=== PATIENT | male | born 1960 | race Caucasian/White ===

== ENCOUNTER 2022-05-26 16:22 | Emergency (ER) | payer OTHER, MEDICAID ==
[~2022-05-26] VITALS: Ht 172.7 cm; Wt 85.3 kg
[2022-05-26 16:25] VITALS: BP_SYST 139
--- NOTE | 2022-05-26 16:29 | NUR ---
Patient triaged and placed in waiting room. VSS and patient appears in no acute distress at this time. Accompanied by self, awaiting available bed, and MD notified of need for MSE.
[2022-05-26] MEDS ORDERED: PANTOPRAZOLE SODIUM 40 MG/VIAL (PROTONIX) IVP ONE (17:45)
[2022-05-26 18:55] LABS: BASOPHILS % (AUTO) 0.4 % (0.0-2.0); EOSINOPHILS % (AUTO) 0.1 % (0.0-4.0); HEMOGLOBIN 15.5 g/dL (14.0-18.0); LYMPHOCYTES # (AUTO) 1.1 K/uL (1.0-5.5); LYMPHOCYTES % (AUTO) 15.2 % (20.5-51.5); MEAN CORPUSCULAR HEMOGLOBIN 31 pg (27-31); MEAN CORPUSCULAR HGB CONC 34 % (32-36); MEAN CORPUSCULAR VOLUME 91 fL (79.0-98.0); MONOCYTES # (AUTO) 0.1 K/uL (0.0-1.0); MONOCYTES % (AUTO) 1.6 % (1.7-9.3); NEUTROPHILS # (AUTO) 6.2 K/uL (1.8-7.7); NEUTROPHILS % (AUTO) 82.7 % (40.0-70.0); PLATELET COUNT (AUTO) 241 K/uL (130-430); RED BLOOD CELL COUNT(AUTO) 4.94 MIL/uL (4.2-6.2); RED CELL DISTRIBUTION WIDTH 14.2 % (9.0-15.0); WHITE BLOOD COUNT (AUTO) 7.5 K/uL (4.8-10.8)
[2022-05-26 19:18] LABS: ALBUMIN 3.9 g/dL (3.4-4.8); CREATININE 0.85 mg/dL (0.55-1.30); TOTAL BILIRUBIN 0.3 mg/dL (0.0-1.0)
--- NOTE | 2022-05-26 20:30 | NUR ---
Patient placed in ER [facility] for evaluation. Instructed patient to notify ED staff for any changes in condition or worsening of symptoms. Patient verbalized understanding.
--- NOTE | 2022-05-26 20:32 | NUR ---
GONZALEZ Raya at bedside examining the patient.
[2022-05-26] MEDS ORDERED: PRO40 PO (20:39)
[2022-05-26 20:48] VITALS: BP_SYST 134
--- NOTE | 2022-05-26 20:50 | NUR ---
Patient given written and verbal discharge instructions by Dr. Raya and verbalizes understanding. ER MD discussed with patient the results and treatment provided. Patient in stable condition. ID arm band removed. Rx of Pantoprazole given. Patient educated on pain management and to follow up with PMD. Pain Scale 0/10. Opportunity for questions provided and answered. Medication side effect fact sheet provided.
== END 2022-05-26 20:44 | disposition home or self-care (01) ==
LOC: SED 16:22
DX: K29.00 Acute gastritis without bleeding (principal); K92.1 Melena; R10.13 Epigastric pain; E11.9 Type 2 diabetes mellitus without complications; I10 Essential (primary) hypertension; Z79.899 Other long term (current) drug therapy
CPT/HCPCS: 36415; 76376; 80053; 85025; 86886; 86900; 86901; 99284

== ENCOUNTER 2022-10-07 19:48 | Observation (INO) | payer OTHER, MEDICAID ==
[~2022-10-07] VITALS: Ht 172.7 cm; Wt 79.8 kg
[2022-10-07 11:45] VITALS: O2SAT 96
[~2022-10-07 19:48] MED LIST: PRO40 PO
[2022-10-07 19:51] VITALS: BP_SYST 113; PULSE 18; RESP 18; TEMP 98.4
[2022-10-07] MEDS ORDERED: NITROGLYCERIN 0.4 MG TAB.SUBL SL ONE (20:30)
[2022-10-07 20:44] LABS: BASOPHILS # (AUTO) 0.1 K/uL (0.0-0.2); BASOPHILS % (AUTO) 0.8 % (0.0-2.0); EOSINOPHILS # (AUTO) 0.1 K/uL (0.0-0.4); HEMATOCRIT 43.4 % (36-54); HEMOGLOBIN 14.5 g/dL (14.0-18.0); LYMPHOCYTES # (AUTO) 2.9 K/uL (1.0-5.5); LYMPHOCYTES % (AUTO) 40.5 % (20.5-51.5); MEAN CORPUSCULAR HEMOGLOBIN 31 pg (27-31); MEAN CORPUSCULAR HGB CONC 34 % (32-36); MEAN CORPUSCULAR VOLUME 93 fL (79.0-98.0); MONOCYTES # (AUTO) 0.7 K/uL (0.0-1.0); MONOCYTES % (AUTO) 9.9 % (1.7-9.3); NEUTROPHILS # (AUTO) 3.3 K/uL (1.8-7.7); NEUTROPHILS % (AUTO) 46.8 % (40.0-70.0); PLATELET COUNT (AUTO) 223 K/uL (130-430); RED BLOOD CELL COUNT(AUTO) 4.67 MIL/uL (4.2-6.2); RED CELL DISTRIBUTION WIDTH 13.5 % (9.0-15.0); WHITE BLOOD COUNT (AUTO) 7.1 K/uL (4.8-10.8)
[2022-10-07 20:57] LABS: ANION GAP 11 (5-15); CALCIUM 8.7 mg/dL (8.4-11.0); CHLORIDE 104 mmol/L (98-107); CREATININE 0.69 mg/dL (0.55-1.30); GFR AFRICAN AMERICAN 149 mL/min (>90); GLUCOSE 137 mg/dL (74-106); UREA NITROGEN, BLOOD 19 mg/dL (8-21)
[2022-10-07 21:04] LABS: ALANINE AMINOTRANSFERASE 28 U/L (12-78); ALBUMIN 3.7 g/dL (3.4-4.8); ASPARTATE AMINOTRANSFERASE 13 U/L (10-37); TOTAL BILIRUBIN 0.3 mg/dL (0.0-1.0)
[2022-10-07] MEDS ORDERED: POTASSIUM CHLORIDE 20 MEQ TAB.PRT.SR PO ONE (23:30)
[2022-10-08] MEDS ORDERED: ALPRAZolam 0.25 MG TABLET PO PRN (00:30)
[2022-10-08] MEDS ORDERED: INSULIN REGULAR, HUMAN 100 UNITS/ML, 3 ML VIAL (humuLIN R) SUBCUT PRN (03:45)
[2022-10-08 06:02] VITALS: BP_SYST 101; PULSE 71; RESP 16; TEMP 97.1
[2022-10-08 07:45] VITALS: BP_SYST 122; PULSE 72; RESP 16; TEMP 96.2; O2SAT 96
[2022-10-08] MEDS ORDERED: ESOM20CA33 PO (09:22)
[2022-10-08] MEDS ORDERED: HYDR-3927 PO (09:22)
[2022-10-08] MEDS ORDERED: LEVO100T9 PO (09:22)
[2022-10-08] MEDS ORDERED: GLIP2.5T3 PO (09:22)
[2022-10-08] MEDS ORDERED: SITA100T11 PO (09:22)
[2022-10-08] MEDS ORDERED: VALS160T2 PO (09:22)
[2022-10-08] MEDS ORDERED: PRAV10TA PO (09:22)
[2022-10-08] MEDS ORDERED: NALO25TA4 PO (09:22)
[2022-10-08] MEDS ORDERED: ALBMDI INH (09:22)
[2022-10-08] MEDS ORDERED: IBUP-1969 PO (09:22)
[2022-10-08] MEDS ORDERED: ICOS1CAP PO (09:22)
[2022-10-08] MEDS ORDERED: METO-290 PO (09:22)
[2022-10-08] MEDS ORDERED: TAMS-11 PO (09:22)
[2022-10-08] MEDS ORDERED: BACL10TA PO (09:22)
[2022-10-08] MEDS ORDERED: CLOP75TA32 PO (09:22)
[2022-10-08] MEDS ORDERED: EZET-75 PO (09:22)
[2022-10-08] MEDS ORDERED: ALPR0.25 PO (09:22)
[2022-10-08] MEDS ORDERED: BISO5TAB15 PO (09:22)
[2022-10-08] MEDS ORDERED: BEPO10DR EACH EYE (09:22)
[2022-10-08] MEDS ORDERED: FLUT16SP16 NS (09:22)
[2022-10-08] MEDS ORDERED: EMPA25TA PO (09:22)
[2022-10-08] MEDS ORDERED: NOR10 PO (09:22)
[2022-10-08] MEDS ORDERED: POTA8TAB66 PO (09:22)
[2022-10-08 11:24] VITALS: BP_SYST 109; PULSE 70; RESP 16; TEMP 98; O2SAT 93
[2022-10-08 13:39] LABS: CALCIUM 8.5 mg/dL (8.4-11.0); CREATININE 0.7 mg/dL (0.55-1.30)
[2022-10-08 15:08] VITALS: BP_SYST 99; PULSE 78; RESP 14; TEMP 96.5; O2SAT 96
[2022-10-08] MEDS ORDERED: IBUPROFEN 600 MG TABLET PO PRN (15:15)
[2022-10-08] MEDS ORDERED: ASA81 PO (16:20)
[2022-10-08 16:28] VITALS: BP_SYST 99; PULSE 78; RESP 14; TEMP 96.5; O2SAT 99
== END 2022-10-08 17:20 | disposition home or self-care (01) ==
LOC: SED 19:48 → STU 22:35
PROVIDERS: ADMIT Specialist; ATTEND Specialist
DX: R07.89 Other chest pain (principal); I10 Essential (primary) hypertension; E03.9 Hypothyroidism, unspecified; E78.5 Hyperlipidemia, unspecified; K21.9 Gastro-esophageal reflux disease without esophagitis; E11.9 Type 2 diabetes mellitus without complications; Z86.73 Personal history of transient ischemic attack (TIA), and cerebral infarction without residual deficits; Z79.899 Other long term (current) drug therapy
CPT/HCPCS: 80053; 85025; 84484 ×2; 36415; 93005; 71045; 99285; 80048; 93306; G0378 ×2

== ENCOUNTER 2023-04-26 20:05 | Emergency (ER) | payer OTHER, MEDICAID ==
[~2023-04-26] VITALS: Ht 172.7 cm; Wt 79.4 kg
[~2023-04-26 20:05] MED LIST changes: +ALBMDI INH; +ALPR0.25 PO; +ASA81 PO; +BACL10TA PO; +BEPO10DR EACH EYE; +BISO5TAB15 PO; +CLOP75TA32 PO; +EMPA25TA PO; +ESOM20CA33 PO; +EZET-75 PO; +FLUT16SP16 NS; +GLIP2.5T3 PO; +HYDR-3927 PO; +IBUP-1969 PO; +ICOS1CAP PO; +LEVO100T9 PO; +METO-290 PO; +NALO25TA4 PO; +NOR10 PO; +POTA8TAB66 PO; +PRAV10TA PO; +SITA100T11 PO; +TAMS-11 PO; +VALS160T2 PO
[2023-04-26 20:07] VITALS: BP_SYST 145; PULSE 98; RESP 17; TEMP 97.8; O2SAT 99
[2023-04-26 21:37] LABS: HEMATOCRIT 46.2 % (36-54); MONOCYTES # (AUTO) 0.6 K/uL (0.0-1.0); MONOCYTES % (AUTO) 9.6 % (1.7-9.3); RED BLOOD CELL COUNT(AUTO) 5.01 MIL/uL (4.2-6.2)
[2023-04-26 21:40] LABS: BASOPHILS # (AUTO) 0.1 K/uL (0.0-0.2); BASOPHILS % (AUTO) 0.8 % (0.0-2.0); EOSINOPHILS # (AUTO) 0.2 K/uL (0.0-0.4); EOSINOPHILS % (AUTO) 2.3 % (0.0-4.0); HEMOGLOBIN 15.8 g/dL (14.0-18.0); LYMPHOCYTES # (AUTO) 2.2 K/uL (1.0-5.5); LYMPHOCYTES % (AUTO) 34.5 % (20.5-51.5); MEAN CORPUSCULAR HEMOGLOBIN 32 pg (27-31); MEAN CORPUSCULAR HGB CONC 34 % (32-36); MEAN CORPUSCULAR VOLUME 92 fL (79.0-98.0); NEUTROPHILS # (AUTO) 3.4 K/uL (1.8-7.7); NEUTROPHILS % (AUTO) 52.8 % (40.0-70.0); PLATELET COUNT (AUTO) 253 K/uL (130-430); WHITE BLOOD COUNT (AUTO) 6.5 K/uL (4.8-10.8)
[2023-04-26 21:51] LABS: CALCIUM 8.8 mg/dL (8.4-11.0); CREATININE 0.82 mg/dL (0.55-1.30); POTASSIUM 3.5 mmol/L (3.5-5.1)
[2023-04-26 21:53] LABS: ALBUMIN 3.8 g/dL (3.4-4.8); BILIRUBIN,DIRECT 0.1 mg/dL (0.0-0.3); TOTAL BILIRUBIN 0.3 mg/dL (0.0-1.0); TOTAL PROTEIN, SERUM 7.5 g/dL (6.4-8.3)
[2023-04-26 23:02] VITALS: BP_SYST 138; PULSE 90; RESP 16; O2SAT 98
== END 2023-04-27 00:25 | disposition home or self-care (01) ==
LOC: SED 20:05
DX: R42 Dizziness and giddiness (principal); R53.1 Weakness; H53.8 Other visual disturbances; E11.9 Type 2 diabetes mellitus without complications; I10 Essential (primary) hypertension; E03.9 Hypothyroidism, unspecified; Z88.6 Allergy status to analgesic agent; Z88.8 Allergy status to other drugs, medicaments and biological substances; Z79.899 Other long term (current) drug therapy
CPT/HCPCS: 36415; 70450-TC; 76376; 80048; 80076; 85025; 99284

== ENCOUNTER 2023-11-18 19:09 | Emergency (ER) | payer OTHER, MEDICAID ==
[~2023-11-18] VITALS: Ht 172.7 cm; Wt 78.9 kg
[2023-11-18 19:25] VITALS: BP_SYST 131; PULSE 78; RESP 19; TEMP 97.9; O2SAT 99
[2023-11-18] MEDS: KETOROLAC TROMETHAMINE 60 MG/2 ML VIAL IM ONE (20:27)
[2023-11-18] MEDS ORDERED: NAPR-690 PO (20:27)
[2023-11-18 20:32] VITALS: BP_SYST 131; PULSE 78; RESP 19; TEMP 97.9; O2SAT 99
== END 2023-11-18 20:32 | disposition home or self-care (01) ==
LOC: SED 19:09
DX: M54.31 Sciatica, right side (principal); M25.551 Pain in right hip; E11.9 Type 2 diabetes mellitus without complications; I10 Essential (primary) hypertension; E03.9 Hypothyroidism, unspecified; E78.5 Hyperlipidemia, unspecified; Z98.890 Other specified postprocedural states; Z88.8 Allergy status to other drugs, medicaments and biological substances; Z79.899 Other long term (current) drug therapy; Z79.2 Long term (current) use of antibiotics
CPT/HCPCS: 99285; 93971; 96372; J1885

== ENCOUNTER 2023-12-01 15:29 | Emergency (ER) | payer OTHER, MEDICAID ==
[~2023-12-01] VITALS: Ht 162.6 cm; Wt 78.0 kg
[~2023-12-01 15:29] MED LIST changes: +NAPR-690 PO
[2023-12-01 15:39] VITALS: BP_SYST 134; PULSE 75; RESP 18; TEMP 98.3; O2SAT 98
[2023-12-01 16:17] LABS: BILIRUBIN,URINE NEGATIVE (NEGATIVE); BLOOD, URINE NEGATIVE (NEGATIVE); CLARITY/URINE CLEAR (CLEAR); COLOR,URINE YELLOW (YELLOW); GLUCOSE,URINE 3+ (NEGATIVE); KETONES,URINE TRACE (NEGATIVE); LEUKOCYTE ESTERASE ,URINE NEGATIVE (NEGATIVE); NITRITE, URINE NEGATIVE (NEGATIVE); PROTEIN URINE NEGATIVE (NEGATIVE); UROBILINOGEN,URINE 0.2 (0.2-1.0)
[2023-12-01 17:08] LABS: BACTERIA,URINE RARE /HPF (None Seen); MUCUS,URINE None Seen /LPF (None Seen); RBC,URINE NONE SEEN /HPF (0-3); WBC,URINE 0-3 /HPF (0-3)
[2023-12-01 20:04] VITALS: BP_SYST 129; PULSE 74; RESP 18; TEMP 98.3; O2SAT 94
== END 2023-12-01 20:04 | disposition home or self-care (01) ==
LOC: SED 15:29
DX: N43.2 Other hydrocele (principal); K40.90 Unilateral inguinal hernia, without obstruction or gangrene, not specified as recurrent; E11.9 Type 2 diabetes mellitus without complications; I10 Essential (primary) hypertension; E03.9 Hypothyroidism, unspecified; E78.5 Hyperlipidemia, unspecified; Z98.890 Other specified postprocedural states; Z88.8 Allergy status to other drugs, medicaments and biological substances; Z79.899 Other long term (current) drug therapy; Z79.2 Long term (current) use of antibiotics
CPT/HCPCS: 76870; 81000; 81001; 81015; 99284